=== PATIENT | male | born 1980 | race Caucasian/White ===

== ENCOUNTER 2019-06-22 05:29 | Day surgery (SDC) | payer MEDICAID ==
[~2019-06-22] VITALS: Ht 188 cm; Wt 132.0 kg
[2019-06-22] VITALS (8 sets, daily range): BP systolic 127–167; BP diastolic 75–95
[~2019-06-22 05:29] MED LIST: NO HOME MEDS
[2019-06-22] MEDS ORDERED: IBUP-1984 PO (05:56)
[2019-06-22] MEDS ORDERED: MELO-100 PO (05:56)
[2019-06-22] MEDS ORDERED: BACL10TA PO (05:56)
[2019-06-22] MEDS ORDERED: HYDR-4353 PO (05:56)
[2019-06-22] MEDS ORDERED: vancomycin inj 1,500 MG in normal saline 300ml IV soln IV ONE (06:00)
[2019-06-22] MEDS ORDERED: cefazolin/dext.iso 2gm/100 ML IV ONE (06:00)
[2019-06-22] MEDS ORDERED: ceFAZolin 1GM/D5W- ADD-VANTAGE 50 ML IV ONE (06:00)
[2019-06-22] MEDS ORDERED: LIDOcaine 1% (10mg/ml) 2ml vial ONE (06:15)
[2019-06-22] MEDS ORDERED: famotidine 20mg tablet PO ONE (06:30)
[2019-06-22] MEDS ORDERED: ringers solution, lacted 1,000 ML IV SCH ×2 (06:30→09:58)
[2019-06-22 07:08] LABS: BASOPHILS % (AUTO) 0.3 % (0-1); EOSINOPHILS # (AUTO) 0.2 X10'3 (0-0.9); EOSINOPHILS % (AUTO) 2.5 % (0-6); LYMPHOCYTES # (AUTO) 2.4 X10'3 (1.1-4.8); LYMPHOCYTES % (AUTO) 35.7 % (21-51); MEAN CORPUSCULAR HEMOGLOBIN 30.6 PG (27.0-31.0); MEAN CORPUSCULAR HGB CONC 33.8 g/dL (33.0-36.5); MEAN CORPUSCULAR VOLUME 90.7 FL (78-98); MEAN PLATELET VOLUME 7.9 FL (7.4-10.4); MONOCYTES # (AUTO) 0.8 X10'3 (0-0.9); MONOCYTES % (AUTO) 11.4 % (2-12); NEUTROPHILS # (AUTO) 3.4 X10'3 (1.8-7.7); NEUTROPHILS % (AUTO) 50.1 % (42-75); PRE OP HEMATOCRIT 46.9 % (42.0-52.0); PRE OP HEMOGLOBIN 15.8 g/dL (14.0-17.9); PRE OP PLATELET COUNT 209 X10'3 (140-440); RED BLOOD COUNT 5.17 X10'6 (4.70-6.10); RED CELL DISTRIBUTION WIDTH 14.9 % (11.5-14.5)
[2019-06-22 07:09] LABS: ALBUMIN 3.8 G/DL (3.4-5.0); ALBUMIN/GLOBULIN RATIO 1.1 (1.1-1.5); ALKALINE PHOSPHATASE 108 IU/L (46-116); BLOOD UREA NITROGEN 15 MG/DL (7-18); BUN/CREATININE RATIO 13.6 (5.4-32.0); CALCIUM 8.8 MG/DL (8.5-10.1); CHLORIDE 106 MMOL/L (99-107); PRE OP ALT 48 U/L (30-65); PRE OP ANION GAP 9 (8-16); PRE OP AST 29 U/L (10-37); PRE OP BILIRUB, TOTAL 0.4 MG/DL (0.0-1.0); PRE OP GLUCOSE 89 MG/DL (70-104); PRE OP POTASSIUM 4.5 MMOL/L (3.4-5.1); PRE OP SODIUM 144 MMOL/L (135-145); TOTAL CARBON DIOXIDE 29.3 MMOL/L (24-32); TOTAL PROTEIN 7.4 G/DL (6.4-8.2); eGFR 76 ML/MIN
[2019-06-22] MEDS ORDERED: LIDOcaine 2% (20mg/ml) 5ml vial ONE (09:49)
[2019-06-22] MEDS ORDERED: propofol inj 20 ML IV ONE ×2 (09:49)
[2019-06-22] MEDS ORDERED: ondansetron/PF 4mg/2ml inj ONE (09:51)
[2019-06-22] MEDS ORDERED: ROPIVAcaine 0.5% (5mg/ml) 30ml vial ONE (09:55)
[2019-06-22] MEDS ORDERED: ketorolac trometh. 30mg/ml inj. ONE (09:55)
[2019-06-22] MEDS ORDERED: fentaNYL/PF 50MCG/1 ML 2ML syringe IV PRN ×2 (10:00)
[2019-06-22] MEDS ORDERED: morphine 4 MG/ML inj SYRINge IV PRN ×2 (10:00)
[2019-06-22] MEDS ORDERED: hydrALAZINE 20mg/ml inj. IV PRN (10:00)
[2019-06-22] MEDS ORDERED: ondansetron/PF 4mg/2ml inj IV PRN (10:00)
[2019-06-22] MEDS ORDERED: labetalol 20mg/4ml (5mg/ml) syringe IV PRN (10:00)
[2019-06-22] MEDS ORDERED: dexamethasone sod phosphate 10mg/ml inj ONE (10:53)
[2019-06-22] MEDS ORDERED: sevoflurane 250ml liquid IH ONE (10:53)
[2019-06-22] MEDS ORDERED: fentaNYL /PF 50mcg/ml 5ml ampule ONE (11:04)
[2019-06-22] MEDS ORDERED: MIDAZolam 5mg/5ml vial ONE (11:04)
[2019-06-22] MEDS ORDERED: fentaNYL/PF 50MCG/1 ML 2ML syringe ONE (13:24)
--- NOTE | 2019-06-22 14:00 | NUR ---
ADMITTED TO PACU FROM OR ACCOMPANIED BY ANESTHESIA. INTIAL PHYSICAL ASSESSMENT DONE AND RECORDED. AWAKE AND RESPONSE ON ARRIVE YO PACU, REPORT RECEIVED FROM ANESTHESIA.
[2019-06-22] MEDS ORDERED: HYDROcodone/acetaminophen 10/325mg tab PO PRN (14:10)
--- NOTE | 2019-06-22 15:00 | NUR ---
Discharge criteria met, discharge instructions given, demonstrates verbal understanding. Discharged home in good condition.
== END 2019-06-22 16:00 | disposition home or self-care (01) ==
LOC: PAS 05:29
PROVIDERS: ATTEND Orthopaedic Surgery
DX: S42.111A Displaced fracture of body of scapula, right shoulder, initial encounter for closed fracture (principal); G89.18 Other acute postprocedural pain; F12.90 Cannabis use, unspecified, uncomplicated; Z79.899 Other long term (current) drug therapy; Z72.89 Other problems related to lifestyle; V29.9XXA Motorcycle rider (driver) (passenger) injured in unspecified traffic accident, initial encounter; Y93.89 Activity, other specified; Y92.89 Other specified places as the place of occurrence of the external cause; Y99.8 Other external cause status
CPT/HCPCS: 23585; 36415; 64418; 73010; 73200; 76000; 80053; 82948; 85025; C1713; J0690; J1100; J1885; J2001; J2250; J2270; J2405; J2704; J3010; J3370; J7120; A4565; A4618; A6449; A7000; J2795